=== PATIENT | female | born 1945 | race Caucasian/White ===

== ENCOUNTER 2018-05-07 07:30 | Inpatient (IN) | payer OTHER ==
[~2018-05-07] VITALS: Ht 152.4 cm; Wt 70.3 kg
[~2018-05-07 07:30] MED LIST: CELEXA20 MG PO; CLONAZEPAM1 MG PO; DIOVAN HCT 160-1 TAB PO; INTEGRA PLUS CAPSULE PO; NORVASC5 MG PO; OMEPRAZOLE40 MG PO; OXYC1TAB9 PO; SIMVASTATIN40 MG PO; TOPROL XL50 MG PO; ULTRACET PO; XARELTO 10MG PO
[2018-05-07] MEDS ORDERED: RESTORIL7.5 MG PO (10:20)
[2018-05-07] MEDS ORDERED: DICY20TA PO (10:20)
[2018-05-16] MEDS ORDERED: INTEGRA PLUS C1 EACH PO (06:15)
[2018-05-16] MEDS ORDERED: OXYC1TAB9 PO (06:15)
[2018-05-16] MEDS ORDERED: XARELTO10 MG PO (06:15)
== END 2018-05-16 17:02 | DRG 470 ==
LOC: SURH 05-13 07:30 → SURG 05-13 09:10 → O/R 05-13 09:10 → SURH 05-13 11:02 → SURG 05-13 21:53
PROVIDERS: Orthopaedic Surgery Sports Medicine
PROC: 0SRD0J9 Replacement of Left Knee Joint with Synthetic Substitute, Cemented, Open Approach (ICD-10-PCS; principal; 2018-05-13 12:45)
DX: M17.12 Unilateral primary osteoarthritis, left knee (principal); I10 Essential (primary) hypertension; K29.70 Gastritis, unspecified, without bleeding; K57.30 Diverticulosis of large intestine without perforation or abscess without bleeding